=== PATIENT | female | born 1980 | race American Indian/Alaskan Native ===

== ENCOUNTER 2017-04-11 01:03 | Emergency (ER) | payer MEDICARE ==
[2017-04-11 01:20] VITALS: BP 133/95
== END 2017-04-11 02:00 | disposition left against medical advice (07) ==
LOC: ED 01:03
DX: R10.9 Unspecified abdominal pain (principal); Z53.21 Procedure and treatment not carried out due to patient leaving prior to being seen by health care provider

== ENCOUNTER 2017-08-16 03:46 | Emergency (ER) | payer MEDICARE ==
[2017-08-16 03:53] VITALS: BP 174/112
[2017-08-16 04:23] LABS: Basophils % (Auto) 0.3 % (0.0-1.8); Hematocrit 42.6 % (30.3-42.9); Hemoglobin 14.2 gm/dl (10.1-14.3); Mean Corpuscular HGB Conc 33 % (30-34); Mean Corpuscular Hemoglobin 27 pg (28-32); Mean Corpuscular Volume 80 fl (79-97); Platelet Count 326 K/mm3 (140-440); Red Blood Count 5.35 M/mm3 (3.65-5.03); Red Cell Distribution Width 14.9 % (13.2-15.2); White Blood Count 15.2 K/mm3 (4.5-11.0)
[2017-08-16 04:34] LABS: Bilirubin,Urine NEG (Negative); Blood,Urine SM (Negative); Ketones,Urine NEG (Negative); Leukocyte Esterase,Urine NEG (Negative); Mucus,Urine FEW /HPF; Nitrite,Urine NEG (Negative)
[2017-08-16 04:44] LABS: Alanine Aminotransferase 23 units/L (7-56); Albumin 4.5 g/dL (3.9-5); Albumin/Globulin Ratio 1.3 %; Alkaline Phosphatase 57 units/L (35-129); Anion Gap 18 mmol/L; BUN/Creatinine Ratio 22; Blood Urea Nitrogen 13 mg/dL (7-17); Calcium 9.6 mg/dL (8.4-10.2); Carbon Dioxide 26 mmol/L (22-30); Chloride 102.9 mmol/L (98-107); Glucose 92 mg/dL (65-100); Lipase 76 units/L (13-60); Potassium 4.1 mmol/L (3.6-5.0); Sodium 143 mmol/L (137-145)
[2017-08-16] MEDS ORDERED: ZOFRAN ODT PO ONE (05:23)
[2017-08-16] MEDS ORDERED: ZOFRAN ODT ONE (05:24)
== END 2017-08-16 10:46 | disposition left against medical advice (07) ==
LOC: ED 03:46
DX: R10.9 Unspecified abdominal pain (principal); Z53.21 Procedure and treatment not carried out due to patient leaving prior to being seen by health care provider
CPT/HCPCS: 36415; 80053; 81001; 83690; 84703; 85025; Q0162